=== PATIENT | male | born 1970 | race Two or more races ===

== ENCOUNTER 2023-06-10 19:51 | Emergency (ER) | payer MEDICAID, OTHER ==
[~2023-06-10] VITALS: Ht 167.6 cm; Wt 68.0 kg
[2023-06-10] MEDS ORDERED: HYDROcodone-ACET 10/325MG TAB PO ONE (20:15)
[2023-06-10 20:20] LABS: Basophils # (auto) 0 10 ^3/uL (0-0.2); Basophils % (auto) 0.3 % (0.0-2.0); Eosinophils # (auto) 0 10 ^3/uL (0-0.8); Eosinophils % (auto) 0.6 % (0.0-7.0); Hematocrit 45.7 % (41.0-53.0); Hemoglobin 15.1 g/dL (13.5-17.5); Lymphocytes # (auto) 1.5 10 ^3/uL (0.4-5.4); Lymphocytes % (auto) 21.8 % (10.0-50.0); Mean Corpuscular Hemoglobin 31.5 pg (28.0-32.0); Mean Corpuscular Hgb Conc. 32.9 g/dL (32.0-36.0); Mean Corpuscular Volume 95.7 fL (80.0-100.0); Monocytes # (auto) 0.9 10 ^3/uL (0-1.3); Monocytes % (auto) 12.9 % (0.0-12.0); Neutrophils # (auto) 4.5 10 ^3/uL (1.6-8.6); Neutrophils % (auto) 64.4 % (37.0-80.0); Red Blood Cells 4.78 10^6/uL (4.5-5.90); Red Cell Distribution Width 15.7 % (11.8-14.3); White Blood Cell 6.9 10^3/uL (4.4-10.8)
[2023-06-10 21:00] VITALS: PULSE 100; RESP 16; O2SAT 98
[2023-06-10 21:24] LABS: Alanine Aminotransferase 84 U/L (7-40); Albumin 4.3 g/dL (3.2-4.8); Alkaline Phosphatase 121 U/L (46-116); Anion Gap 13 (5-15); Aspartate Aminotransferase 85 U/L (13-40); BUN/Creatinine Ratio 6.9 (10.0-20.0); Blood Urea Nitrogen 5 mg/dL (9-23); Calcium 9.2 mg/dL (8.7-10.4); Carbon Dioxide 22 mmol/L (20-30); Chloride 99 mmol/L (98-107); Glucose 89 mg/dL (74-106); Potassium 3.7 mmol/L (3.5-5.1); Sodium 134 mmol/L (136-145)
[2023-06-10 21:25] LABS: Bilirubin, Total 0.3 mg/dL (0.2-1.0); Total Protein 7.4 g/dL (5.7-8.2)
[2023-06-10 21:39] LABS: INR 0.93 (0.9-1.15); Partial Thromboplastin Time 28.2 SEC (24.5-34.5); Prothrombin Time 9.8 sec (9.3-11.8)
[2023-06-10 21:58] LABS: Blood Alcohol 355.6 mg/dL (<10)
[2023-06-10] MEDS ORDERED: THIAMINE 100mg/ml INJ (200mg/2ml VIAL) IV ONE (22:30)
[2023-06-10 23:06] LABS: Urine Bacteria NONE SEEN /hpf (None Seen); Urine Blood Negative /uL (Negative); Urine Clarity Clear (Clear); Urine Protein, UAD Negative (Negative); Urine Specific Gravity 1.003 (1.001-1.035); Urine Urobilinogen Normal (Negative); Urine WBC <1 /hpf (0 - 3)
[2023-06-10 23:07] LABS: Urine Color Straw (Yellow)
[2023-06-10 23:08] LABS: Amphetamine Screen, Urine Neg (NEGATIVE); Barbiturate Scree,Urine Neg (NEGATIVE); Benzodiazephine Screen, Urine Neg (NEGATIVE); Cannabinoid Screen, Urine Neg (NEGATIVE); Cocaine Screen, Urine Neg (NEGATIVE); Opiate Scree,Urine Neg (NEGATIVE); Phencyclidine Screen, Urine Neg (NEGATIVE)
[2023-06-10] MEDS ORDERED: SODIUM CHLORIDE 0.9% 1,000 ML IV ONE (23:15)
[2023-06-11 02:31] VITALS: BP 152/85; PULSE 97; RESP 23; O2SAT 100
[2023-06-11] MEDS ORDERED: FOLIC ACID 1 MG, MAGNESIUM SULF SDV 50% 8 MEQ, MULTIPLE VITAMIN 10 ML, THIAMINE INJ 100... INJ SCH ×5 (18:00)
== END 2023-06-11 02:41 | disposition home or self-care (01) ==
LOC: ER 19:51 → EDBD 19:51 → ER 06-11 02:41
DX: R07.89 Other chest pain (principal); F10.10 Alcohol abuse, uncomplicated; Z88.8 Allergy status to other drugs, medicaments and biological substances; Y90.8 Blood alcohol level of 240 mg/100 ml or more
CPT/HCPCS: 36415; 71045; 80053; 80307; 80320; 81001; 83690; 83735; 83880; 84443; 84484; 85025; 85379; 85610; 85730; 93005; 96361; 96374; 99285; J3411; J7030